=== PATIENT | female | born 1965 | race Caucasian/White ===

== ENCOUNTER 2017-02-17 06:00 | Day surgery (SDC) | payer BC ==
[2017-02-15 16:03] VITALS: BMI 25.4
--- NOTE | 2017-02-16 13:57 | HP ---
HISTORY AND PHYSICAL DATE OF SERVICE: 02/17/2017 Indira Monte is a 51-year-old patient seen progressive left shoulder pain after options regarding treatment were discussed with her, she elected to proceed with arthroscopy. Consent regarding the procedure was obtained. PAST MEDICAL HISTORY: Noncontributory. PAST SURGICAL HISTORY: Cholecystectomy. DAILY MEDICATIONS: Ibuprofen. ALLERGIES: None reported. SOCIAL HISTORY: Patient denies current tobacco use. PHYSICAL EVALUATION: left shoulder, flexion 120 degrees, abduction 110 degrees, external rotation 50 degrees with weakness. There is tenderness along the anterolateral acromion rotator cuff insertion site. Impingement sign positive at 80 degrees. Distal neurovascular exam is intact. Radiographs of the left shoulder revealed a lateral downsloping anterior acromion, acromioclavicular joint osteoarthritis and cystic changes of the greater tuberosity. A left shoulder MRI revealed rotator cuff tear. IMPRESSION: Left shoulder impingement with rotator cuff tear. PLAN: Left shoulder arthroscopy, subacromial decompression, possible arthroscopic rotator cuff repair and debridement. MMODL / IJN: [id number] /
[~2017-02-17 06:00] MED LIST: DEXAMETHASONE SOD PHOSPHATE 10 MG/ML 1 ML VIAL IV ONE; HYDROmorphone 0.5 MG/0.5 ML SYRINGE IVP PRN; LACTATED RINGERS 1,000 ML IV SCH; MIDAZOLAM 2 MG/2 ML VIAL IV PRN; ONDANSETRON 4 MG/2 ML VIAL IVP ONE
[2017-02-17] MEDS ORDERED: LIDOCAINE 1% 20 ML VIAL (10MG/ML) FOR IV START INTRADERMA ONE (06:54)
[2017-02-17] MEDS ORDERED: MIDAZOLAM 2 MG/2 ML VIAL IV ONE (07:18)
[2017-02-17] MEDS ORDERED: fentaNYL (PF) 50 MCG/ML 2 ML AMP IV ONE (07:18)
[2017-02-17] MEDS ORDERED: PHENYLEPHRINE-0.9% NACL SYG 1 MG/10 ML SYRINGE ONE (07:31)
[2017-02-17] MEDS ORDERED: ePHEDrine SULFATE/0.9% NACL/PF 50 MG/5 ML SYRINGE IV ONE (07:31)
[2017-02-17] MEDS ORDERED: fentaNYL (PF) 50 MCG/ML 2 ML AMP ONE (07:31)
[2017-02-17] MEDS ORDERED: SUCCINYLCHOLINE CHLORIDE 100 MG/5 ML SYR IV ONE (07:31)
[2017-02-17] MEDS ORDERED: PROPOFOL 10 MG/ML 20 ML VIAL IV ONE (07:31)
[2017-02-17] MEDS ORDERED: ceFAZolin 1,000 MG in DEXTROSE/WATER 1 50ML.BAG IVPB ONE (08:00)
--- NOTE | 2017-02-17 08:48 | P.ONQ ---
Anesthesiology Proc Note - PNB - Peripheral Nerve Block Performed Left Interscalene Single Time Out Performed: Yes Procedure Start Time: 07:15 Indication: Acute Post-Operative Pain, Analgesia Specifically requested for management of pain by DrDaniel: Seymour Fry Sedation Type: Sedate with meaningful contact maintained Preparation: Sterile Prep Position: Supine Catheter: None Needle Types: Other (see comment) (Pajunk) Needle Size: 50mm (2") Needle Gauge: 21 Technique: Ultrasound Injectate: Other (see comment) (10 mL 2% lidocaine +10 mL 0.5% ropivacaine) Adjunct: Epinephrine (see comment for dilution ratio) (1:200,000) Blood Aspirated: No Pain Paresthesia on Injection Noted: No Resistance on Injection: Normal Events: Uneventful and Well Tolerated
[2017-02-17] MEDS ORDERED: LACTATED RINGERS 1,000 ML IV ONE (08:52)
--- NOTE | 2017-02-17 09:35 | P.OP ---
Date of Procedure: 02/17/17 Preoperative Diagnosis: Left shoulder impingement Postoperative Diagnosis: 1. Left shoulder rotator cuff tear 2. Left shoulder impingement 3. Left shoulder acromioclavicular joint osteoarthritis 4. Left shoulder partial long head biceps tendon tear Procedure(s) Performed: 1. Left shoulder arthroscopic rotator cuff repair 2. Left shoulder arthroscopic subacromial decompression 3. Left shoulder arthroscopic Kelly procedure 4. Left shoulder arthroscopic biceps tenotomy Implants: 4-4.5 peek anchors Anesthesia: GETA, regional (Interscalene block) Surgeon: Seymour Fry Donor Processor #1: Ellis Munoz Estimated Blood Loss (ml): 10 Pathology: none sent Condition: stable Disposition: PACU Indications for Procedure: 51-year-old patient seen with progressive left shoulder pain. After having treatment options discussed, she elected to proceed with arthroscopy. Operative Findings: See description of procedure Description of Procedure: Patient underwent a shoulder block by department of anesthesia. The patient was then taken to the operative suite. The patient underwent a general anesthetic by the department of anesthesia. The patient was placed into a lateral position and secured. There was appropriate padding of the bony prominence. Left shoulder was then prepped and draped in normal sterile orthopedic fashion. We placed the extremity in 10 pounds of longitudinal traction. A posterior incision was now made for a posterior working portal site. The trocar and cannula were inserted into the glenohumeral joint. Arthroscopy was initiated. Spinal needle was now inserted anteriorly, to ascertain the anterior working portal site. An incision was now made in that area, a trocar was inserted followed by a probe. Was partial tearing long head biceps tendon. There was an obvious rotator cuff tear visualized from glenohumeral side. The humeral head and glenoid were unremarkable. The labrum was stable. I performed an arthroscopic biceps tenotomy. Instruments were now removed from the glenohumeral joint. Utilizing the posterior working portal site, the trocar and cannula were inserted into the subacromial space. Arthroscopy initiated. I made an incision 2 fingerbreadths lateral to the acromion. I introduced my trocar followed by my ArthroCare ablator. I now began ablating thick subacromial bursal tissue, which exposed the undersurface of the anterior acromion. This was diminished subacromial space. There was a very prominent anterior acromion. A motorized bur was introduced and a subacromial decompression was performed. I also excised some osteophytes off the inferior aspect of the distal clavicle. The AC joint was visualized and noted to be fairly arthritic. Our motorized bur was introduced in the anterior portal site and a Kelly procedure was performed without difficulty, decompressing the AC joint nicely. I turned my attention to the rotator cuff. There was a 2-2.5 cm tear distal supraspinatus. I debrided the margins down to stable tissue. I abraded the footprint with a motorized bur. I created an poultryman portal site off the lateral acromion. I introduced 2 medial row anchors with 2 sutures each. I passed all 8 limbs of suture through good bites of rotator cuff tendon. I crisscrossed the suture introduced 2 lateral anchors compressing the tendon along the footprint very nicely. Residual suture limbs were clipped. The repair was found to be stable. Instruments now removed from the portal sites. All portal sites were approximated with nylon sutures. Sterile dressings were applied followed by a shoulder immobilizer. Low GLASGOW assisted with the procedure. The patient was awakened, transferred to a bed, and taken to recovery in stable condition.
[2017-02-17 09:38] VITALS: TEMP 97.1
[2017-02-17 11:03] VITALS: RESP 18
[2017-02-17 11:32] VITALS: BP 126/78; PULSE 70
== END 2017-02-17 12:07 | disposition home or self-care (01) ==
LOC: OR 06:00
PROVIDERS: ATTEND Orthopaedic Surgery
DX: M75.102 Unspecified rotator cuff tear or rupture of left shoulder, not specified as traumatic (principal); M19.012 Primary osteoarthritis, left shoulder; S46.112A Strain of muscle, fascia and tendon of long head of biceps, left arm, initial encounter; X58.XXXA Exposure to other specified factors, initial encounter; M75.42 Impingement syndrome of left shoulder; M25.712 Osteophyte, left shoulder; Z79.1 Long term (current) use of non-steroidal anti-inflammatories (NSAID)
CPT/HCPCS: 64415; 81025; 29824; 29827; 29826; C1894; C1713; J2250; J1100; J2405; J3010; J0690; J2370; J0330; J2704

== ENCOUNTER 2019-01-03 18:38 | Emergency (ER) | payer OTHER, BC ==
[2019-01-03 18:51] VITALS: TEMP 98
[2019-01-03] MEDS ORDERED: ACETAMINOPHEN TAB 500 MG TAB PO STA (19:05)
[2019-01-03] MEDS ORDERED: LIDOCAINE 1% INJ 10MG/ML (20 ML MDV) SQ ONE (19:05)
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
[2019-01-03 21:06] VITALS: BP 133/72; PULSE 72; RESP 18
== END 2019-01-03 21:08 | disposition home or self-care (01) ==
LOC: EC 18:38
DX: S61.412A Laceration without foreign body of left hand, initial encounter (principal); S00.83XA Contusion of other part of head, initial encounter; S20.211A Contusion of right front wall of thorax, initial encounter; R04.0 Epistaxis; V49.40XA Driver injured in collision with unspecified motor vehicles in traffic accident, initial encounter; Y92.410 Unspecified street and highway as the place of occurrence of the external cause; Y93.89 Activity, other specified
CPT/HCPCS: 73130; 71046; 70486; 70450; 99284; 12002; J2001

== ENCOUNTER → 2019-01-09 | Outpatient (CLI) | payer BC ==
[2019-01-09 13:34] VITALS: BP 119/78; PULSE 77; RESP 16; TEMP 98.4; BMI 28.7
--- NOTE | 2019-01-09 14:16 | P.HPOB ---
History of Present Illness H&P Date: 01/09/19 Chief Complaint: The patient is here for her routine gynecologic exam and ma mmogram. This is a 53-year-old with an LMP of 2017. Patient states it has been about 5 years since her last pelvic exam. Her menstrual periods stopped in 2017. She has had mild hot flashes, but they are infrequent less than one per day. She is without gynecologic complaints and denies any postmenopausal bleeding. She has noticed some vaginal dryness with sexual intercourse and has used a lubricant for this. Review of Systems The patient has gained 5 pounds over the last year. She denies respiratory, cardiac, or G.I. problems. 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 History of Any Multi-Drug Resistant Organisms: None Reported Past Surgical History: Cholecystectomy, Orthopedic Surgery Additional Past Surgical History / Comment(s): lt shoulder Sx. Past Psychological History: No Psychological Hx Reported Smoking Status: Never smoker Past Alcohol Use History: Occasional (One per week) Past Drug Use History: None Reported Additional History: She has been since 2014 and this is her second marriage. 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 - Past Family History Father Family Medical History: Diabetes Mellitus Medications and Allergies Home Medications Medication Instructions Recorded Confirmed Type Calcium Carbonate [Calcium] 600 mg PO DAILY 02/15/17 01/09/19 History Multivitamins, Thera [Multivitamin 1 tab PO DAILY 02/15/17 01/09/19 History (formulary)] Lecithin, Soy [Lecithin] 400 mg PO DAILY 01/09/19 01/09/19 History Allergies Allergy/AdvReac Type Severity Reaction Status Date / Time No Known Allergies Allergy Verified 01/09/19 13:29 Exam Vital Signs Temp Pulse Resp BP Pulse Ox 01/09/19 13:31 98.4 F 77 16 119/78 100 Intake and Output 01/08/19 01/09/19 01/09/19 22:59 06:59 14:59 Other: Weight 66.678 kg Height 5 feet 0 inches, weight 147 pounds, BMI 28.7. This is a well-developed well-nourished female who is alert and oriented times 3 in no acute distress. HEENT: Within normal limits. NECK: Supple without mass or thyromegaly. CHEST AND LUNGS: Clear to auscultation. HEART: Regular rate and rhythm. BREASTS: Are without mass or discharge. AXILLARY EXAM: Negative for adenopathy. BACK: Negative for CVA tenderness. ABDOMEN: Soft, nontender, without palpable masses. PELVIC EXAM: Normal external genitalia with minimal atrophy. Cervix and vagina appear normal with minimal atrophy. There is no unusual discharge. There is no evidence of prolapse. The uterus is midposition, nongravid size and nontender. There are no palpable adnexal masses or tenderness. RECTAL EXAM: Rectovaginal exam is negative for mass or tenderness and is negative for occult blood. EXTREMITIES: Nontender. IMPRESSION: 1. 53-year-old menopausal female with normal gynecologic exam. PLAN: 1. Pap smear was performed. 2. Self breast awareness was discussed with the patient. 3. Greening mammogram will be done today. 4. Osteoporosis prevention was discussed. I have stressed the importance of adequate calcium, vitamin D and regular exercise. Recommended amounts of calcium and vitamin D were also discussed. 5. She was advised to return in one year for her annual well woman exam.
--- NOTE | 2019-01-10 10:09 | MM ---
Reason for exam: screening (asymptomatic). Last mammogram was performed 5 years and 8 months ago. History: Patient is postmenopausal. Took hormonal contraceptives for 3 years. Physical Findings: A clinical breast exam by your physician is recommended on an annual basis and results should be correlated with mammographic findings. MG 3D Screening Mammo W/Cad Bilateral CC and MLO view(s) were taken. Prior study comparison: May 03, 2013, [facility] DIGITAL RIGHT MAMMOGRAM w/CAD. May 01, 2013, bilateral digital screening mammo w/CAD. There are scattered fibroglandular densities. No suspicious abnormality. No significant changes when compared with prior studies. ASSESSMENT: Negative, BI-RAD 1 RECOMMENDATION: Routine screening mammogram of both breasts in 1 year.
== END | disposition home or self-care (01) ==
LOC: WWCWWP 13:18
PROVIDERS: ATTEND Obstetrics & Gynecology
DX: Z12.31 Encounter for screening mammogram for malignant neoplasm of breast (principal)
CPT/HCPCS: 77063; 77067

== ENCOUNTER → 2021-08-24 | Outpatient (CLI) | payer OTHER ==
--- NOTE | 2021-08-25 05:07 | MR ---
EXAMINATION TYPE: MR shoulder RT wo con DATE OF EXAM: 08/24/2021 COMPARISON: None HISTORY: Right shoulder pain Multiplanar multiecho imaging of the right shoulder with no contrast. There is moderate subcutaneous acromial joint effusion. There is small shoulder joint effusion. There is a large full-thickness tear of the anterior aspect of the rotator cuff supraspinatus tendon. Ther e is minimal retraction. There is spurring at the AC joint and mild subacromial impingement. The infr aspinatus tendon is intact. The biceps tendon is intact. Subscapularis tendon is intact. Glenoid esdras appear fairly normal. No e vidence of a fracture. No focal bone destruction. IMPRESSION: Large anterior rotator cuff tear involving supraspinatus tendon. Shoulder joint effusion and subdelto id effusion. Mild subacromial impingement.
== END | disposition home or self-care (01) ==
LOC: RADMRIMAIN 17:42
PROVIDERS: ATTEND Orthopaedic Surgery
DX: M75.111 Incomplete rotator cuff tear or rupture of right shoulder, not specified as traumatic (principal)

== ENCOUNTER → 2021-10-29 | Outpatient (CLI) | payer OTHER ==
[2021-10-29 15:26] LABS: Basophils # (A) 0.05 X 10*3/uL (0.00-0.10); Basophils % (A) 1.1 %; Eosinophils # (A) 0.15 X 10*3/uL (0.04-0.35); Eosinophils % (A) 3.2 %; HCT 44.4 % (37.2-46.3); HGB 14.4 g/dL (12.0-15.0); Immature Grans, Automated 0.6 %; Lymphocytes % (A) 30.2 %; MCH 29.8 pg (27.0-32.0); MCHC 32.4 g/dL (32.0-37.0); MCV 91.7 fL (80.0-97.0); Mean Platelet Volume 10.9 fL (9.5-12.2); Monocytes # (A) 0.35 X 10*3/uL (0.20-1.00); Monocytes % (A) 7.6 %; NRBC Per 100 WBC 0 /100 WBCS (0.0-0.0); Neutrophils # (A) 2.65 X 10*3/uL (1.80-7.70); Neutrophils % (A) 57.3 %; Platelet Count 288 X 10*3/uL (140-440); RBC 4.84 X 10*6/uL (4.10-5.20); RDW 12.1 % (11.5-14.5); WBC 4.63 X 10*3/uL (4.50-10.00)
[2021-10-29 15:59] LABS: Potassium 4.1 mmol/L (3.5-5.5)
== END | disposition home or self-care (01) ==
LOC: LABPAT 08:38
PROVIDERS: ATTEND Orthopaedic Surgery
DX: Z01.818 Encounter for other preprocedural examination (principal); M75.41 Impingement syndrome of right shoulder; R94.31 Abnormal electrocardiogram [ECG] [EKG]
CPT/HCPCS: 36415; 80051; 85025; 93005

== ENCOUNTER 2021-11-05 07:08 | Day surgery (SDC) | payer OTHER ==
--- NOTE | 2021-11-05 03:41 | HP ---
HISTORY AND PHYSICAL DATE OF SURGERY: Surgery is scheduled for 11/05/2021. HISTORY OF PRESENT ILLNESS: Indira Monte is a 56-year-old patient, seen with progressive right shoulder pain. Options were discussed with her. She elected to proceed with right shoulder arthroscopy. Consent was obtained. PAST MEDICAL HISTORY: Noncontributory. PAST SURGICAL HISTORY: Cholecystectomy, left shoulder arthroscopy. DAILY MEDICATIONS: Motrin. ALLERGIES: None. SOCIAL HISTORY: She denies tobacco use. PHYSICAL EVALUATION OF THE RIGHT SHOULDER: Flexion is 120 degrees, abduction is 110 degrees, external rotation is 40 degrees with some weakness. Tenderness along the anterolateral acromion and rotator cuff insertion. Impingement is positive at 90 degrees. Drop-arm sign is positive. Cross-body adduction sign is positive. Distal neurovascular exam is intact. RADIOGRAPHS: Right shoulder radiographs revealed a type 2 acromion, severe acromioclavicular joint osteoarthritis and cystic changes of the tuberosity. Right shoulder MRI revealed a large rotator cuff tear, evidence for acromioclavicular joint osteoarthritis and impingement. IMPRESSION: 1. Right shoulder impingement with rotator cuff tear. 2. Right shoulder acromioclavicular joint osteoarthritis. PLAN: Right shoulder arthroscopy with subacromial decompression, arthroscopic rotator cuff repair, Kelly procedure and debridement. MMODL / IJN: [id number] /
[~2021-11-05 07:08] MED LIST changes: -DEXAMETHASONE SOD PHOSPHATE 10 MG/ML 1 ML VIAL IV ONE; +DEXAMETHASONE SOD PHOSPHATE 4 MG/ML 1 ML VIAL IV ONE; -HYDROmorphone 0.5 MG/0.5 ML SYRINGE IVP PRN; +LIDOCAINE 1% (10MG/ML) FOR IV START INTRADERMA PRN
[2021-11-05] MEDS ORDERED: MIDAZOLAM 2 MG/2 ML VIAL IVP ONE (08:42)
[2021-11-05] MEDS ORDERED: PROPOFOL 10 MG/ML 20 ML VIAL IV ONE (08:53)
[2021-11-05] MEDS ORDERED: ROPIVACAINE 5 MG/ML 30 ML VIAL ONE (08:53)
[2021-11-05] MEDS ORDERED: SUCCINYLCHOLINE CHLORIDE 200 MG/10 ML VIAL IV ONE (08:53)
[2021-11-05] MEDS ORDERED: LIDOCAINE 2% INJ 20 MG/ML (2 ML VIAL) ONE (08:53)
[2021-11-05] MEDS ORDERED: fentaNYL (PF) 50 MCG/ML 2 ML AMP ONE (08:53)
[2021-11-05] MEDS ORDERED: DEXAMETHASONE SOD PHOSPHATE 4 MG/ML 1 ML VIAL ONE (08:53)
[2021-11-05 10:50] VITALS: TEMP 97
[2021-11-05] MEDS: HYDROmorphone 0.5 MG/0.5 ML SYRINGE IVP PRN ×2 (10:59→11:23)
[2021-11-05] MEDS ORDERED: Acetaminophen-Codeine 300-30mg TAB ONE (12:12)
[2021-11-05] MEDS ORDERED: LACTATED RINGERS 1,000 ML IV ONE (12:18)
[2021-11-05] MEDS ORDERED: Acetaminophen-Codeine 300-30mg TAB PO ONE (12:20)
[2021-11-05 12:24] VITALS: PULSE 75
[2021-11-05] MEDS ORDERED: ONDANSETRON 4 MG/2 ML VIAL ONE (12:34)
[2021-11-05] MEDS ORDERED: ONDANSETRON 4 MG/2 ML VIAL IVP ONE (12:35)
[2021-11-05 12:45] VITALS: BP 144/88; RESP 20
--- NOTE | 2021-11-05 19:30 | P.ANPRN ---
Procedure Note - Anesthesia - Nerve Block Performed Right Interscalene Single Time Out Performed: Yes Date of Procedure: 11/05/21 Procedure Start Time: 08:41 Procedure Stop Time: 08:46 Location of Patient: PreOp Indication: Acute Post-Operative Pain, Requested by Surgeon Sedation Type: Sedate with meaningful contact maintained Preparation: Sterile Prep Position: Supine Needle Types: Pajunk Needle Gauge: 21 Ultrasound used to visualize needle placement: Yes Ultrasound used to observe medication spread: Yes Blood Aspirated: No Pain Paresthesia on Injection Noted: No Resistance on Injection: Normal Image Stored and Saved: Yes Events: Uneventful and Well Tolerated (ropi .5% 20cc plus dexamethasone 4mg)
--- NOTE | 2021-11-05 20:06 | OP ---
OPERATIVE REPORT PREOPERATIVE DIAGNOSIS: Right shoulder impingement. POSTOPERATIVE DIAGNOSES: 1. Right shoulder rotator cuff tear. 2. Right shoulder impingement. 3. Right shoulder acromioclavicular joint osteoarthritis. 4. Right shoulder partial long head biceps tendon tear. 5. Right shoulder superficial labral tear. PROCEDURES: 1. Right shoulder arthroscopic rotator cuff repair. 2. Right shoulder arthroscopic subacromial decompression. 3. Right shoulder arthroscopic Kelly procedure. 4. Right shoulder arthroscopic biceps tenotomy. 5. Right shoulder arthroscopic debridement of labral tear. ANESTHESIA: General with preoperative interscalene block. ESTIMATED BLOOD LOSS: 10 mL. PATHOLOGY: None. CONDITION: Stable. INDICATIONS: 56-year-old patient seen with progressive right shoulder pain. Options for treatment were discussed with her. She elected to proceed with arthroscopy. Consent was obtained. DESCRIPTION OF PROCEDURE: The patient was taken to the operative suite after having an interscalene block performed by the by Department of Anesthesia for postoperative pain management. She underwent general anesthetic by Department Of Anesthesia. She was placed in lateral position. The bony prominence was secured and they were well padded. The right upper extremity was placed in 10 pounds longitudinal traction. The right shoulder was prepped and draped in normal sterile orthopedic fashion. A posterior incision was made for posterior working portal site. The trocar and camera were inserted into the glenohumeral joint. Arthroscopy was initiated. I inserted a spinal needle anteriorly to assign the anterior working portal site. Incision was made. Trocar and probe inserted. There was superficial tearing of the labrum superiorly and anteriorly. There was partial tearing and hyperemia of long-head biceps tendon. There were some early grade 1 chondral changes of the glenohumeral joint. There was a significant rotator cuff tendon tear that I could see from the glenohumeral joint. I performed arthroscopic biceps tenotomy. I debrided out the superficial labral tear getting down to stable labral tissue. The residual labrum was probed and was found to be stable. Instruments are now removed from glenohumeral joint. Utilizing a posterior working portal site, a trocar and cannula were now inserted into the subacromial space. Arthroscopy was initiated. I made a lateral incision for a lateral working portal site and introduced my trocar, followed by my ablator, and ablated the thick subacromial bursal tissue, exposing the undersurface of the anterior acromion, which was very prominent with diminished subacromial space. I introduced a bur and performed a subacromial decompression. I also excised some osteophytes off the inferior aspect of the distal clavicle. I noted a significant amount of osteoarthritis of the acromioclavicular joint. I now inserted my motorized bur through the anterior portal and performed an arthroscopic Kelly procedure. We noted good decompression of the AC joint at this point. I now turned my attention to the rotator cuff. There was an approximately 2.5 to 3 cm tear in the distal supraspinatus tendon. I debrided the margins getting down to a stable tendon tissue. I abraded the footprint with a motorized bur. I made an accessory portal site off the anterolateral acromion. I now punched 2 holes for medial row anchors, introduced 2 medial row anchors with 2 stitches each. I now with the assistance of PEE Garces, passed all the limbs of suture through good bites of rotator cuff tendon. We punched 2 holes lateral for insertion of our lateral anchors. The sutures were crisscross, 4 sutures were passed through the eyelet of a 4.75 Arthrex SwiveLock anchor. I placed an eyelet to high into the anterior lateral punch hole. I held it in position while PEE Garces, tension all those sutures into nazia. The anchor with good fixation noted. We did the same with the posterolateral anchor with good fixation noted there. All residual suture limbs were clipped. We had a good speed bridge type configuration repair with good compression tendon in the entire footprint. At this point, instruments removed from subacromial space. The portal sites were approximated with nylon suture. Sterile dressings were applied. The patient was placed into an immobilizer, awakened, transferred to bed in recovery stable condition. PEE Garces, assisted with all aspects of the procedure. MMODL / IJN: [id number] /
== END 2021-11-05 13:14 | disposition home or self-care (01) ==
LOC: OR 07:08
PROVIDERS: ATTEND Orthopaedic Surgery
DX: S46.011A Strain of muscle(s) and tendon(s) of the rotator cuff of right shoulder, initial encounter (principal); G89.18 Other acute postprocedural pain; M19.011 Primary osteoarthritis, right shoulder; S43.431A Superior glenoid labrum lesion of right shoulder, initial encounter; S46.111A Strain of muscle, fascia and tendon of long head of biceps, right arm, initial encounter; M75.41 Impingement syndrome of right shoulder; Z79.1 Long term (current) use of non-steroidal anti-inflammatories (NSAID); X58.XXXA Exposure to other specified factors, initial encounter
CPT/HCPCS: 29827; 29826; 29824; 29828; 64415; 76942; C1713 ×2; C1894; J2250; J0330; J1100; J2405; J0690; J3010; J2795; J2704; J1170; J2001

== ENCOUNTER → 2022-08-06 | Outpatient (CLI) | payer OTHER ==
--- NOTE | 2022-08-09 18:56 | MM ---
Reason for Exam: Screening (asymptomatic). Last mammogram was performed 3 year(s) and 7 month(s) ago. Patient History: Menarche at age 11. First Full-Term at age 25. Postmenopausal. Patient has history of breast feeding. Patient used Hormonal Contraceptives for 3 years. Risk Values: Brigitte 5 year model risk: 1.0%. NCI Lifetime model risk: 6.8%. Prior Study Comparison: 05/01/2013 Bilateral Screening Mammogram, [facility]. 05/03/2013 Right Diagnostic Mammogram, [facility]. 01/09/2019 Bilateral Screening Mammogram, [facility]. Tissue Density: There are scattered fibroglandular densities. Findings: Analyzed By CAD. Pattern appears symmetrical and stable. No significant interval change is evident. Some chronic nodularities within the left breast, Stable. No suspicious groups of microcalcifications, spiculated or lobular masses, architectural distortion or other secondary signs of malignancy are mammographically apparent. Overall Assessment: Benign, BI-RAD 2 Management: Screening Mammogram of both breasts in 1 year. A negative mammogram report should not preclude additional follow up of suspicious palpable abnormalities. Patient should continue monthly self breast exam. A clinical breast exam by your physician is recommended on an annual basis and results should be correlated with mammographic findings. Electronically signed and approved by: Jamie Abarca D.O. Radiologis
== END | disposition home or self-care (01) ==
LOC: RADMAMWWP 11:14
PROVIDERS: ATTEND Family Medicine
DX: Z12.31 Encounter for screening mammogram for malignant neoplasm of breast (principal); Z78.0 Asymptomatic menopausal state
CPT/HCPCS: 77067

== ENCOUNTER → 2022-08-10 | Outpatient (CLI) | payer OTHER ==
[2022-08-10 09:57] VITALS: BP 133/91; PULSE 65; RESP 16; TEMP 97.5
--- NOTE | 2022-08-10 10:45 | P.HPOB ---
History of Present Illness H&P Date: 08/10/22 Chief Complaint: The patient is here for her routine gynecologic exam. This is a 56-year-old with an LMP of 2017. The patient has experienced some vaginal dryness with sexual intercourse. She is otherwise without gynecologic complaints. Review of Systems She has lost about 7 pounds since she was here 4 years ago. She denies respiratory, cardiac, or GI problems. 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 History of Any Multi-Drug Resistant Organisms: None Reported Past Surgical History: Cholecystectomy, Orthopedic Surgery Additional Past Surgical History / Comment(s): Bilateral rotator cuff surgeries. Colonoscopy 2017(next after 10yr). Past Psychological History: No Psychological Hx Reported Smoking Status: Never smoker Past Alcohol Use History: Occasional (One per week.) Past Drug Use History: None Reported Additional History: She has been since 2014 and this is her second marriage. 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 - Past Family History Father Family Medical History: Diabetes Mellitus Brother(s) Family Medical History: Diabetes Mellitus Medications and Allergies Home Medications Medication Instructions Recorded Confirmed Type Calcium Carbonate [Calcium] 600 mg PO DAILY 02/15/17 08/10/22 History Multivitamins, Thera [Multivitamin 1 tab PO DAILY 02/15/17 08/10/22 History (formulary)] Lecithin, Soy [Lecithin] 400 mg PO DAILY 01/09/19 08/10/22 History Acetaminophen-Codeine 300-30mg 1 tab PO Q4H PRN #28 tablet 11/05/21 08/10/22 Rx [Tylenol w/codeine #3] Cholecalciferol (Vitamin D3) 1 tab PO DAILY 08/10/22 08/10/22 History [Vitamin D3] Allergies Allergy/AdvReac Type Severity Reaction Status Date / Time No Known Allergies Allergy Verified 08/10/22 09:53 Exam Vital Signs Temp Pulse Resp BP Pulse Ox 08/10/22 09:55 97.5 F L 65 16 133/91 99 Intake and Output 08/09/22 08/10/22 08/10/22 22:59 06:59 14:59 Other: Weight 63.503 kg Height 5 feet 0 inches, weight 140 pounds, BMI 27.3. This is a well-developed well-nourished female who is alert and oriented times 3 in no acute distress. HEENT: Within normal limits. NECK: Supple without mass or thyromegaly. CHEST AND LUNGS: Clear to auscultation. HEART: Regular rate and rhythm. BREASTS: Are without mass or discharge. AXILLARY EXAM: Negative for adenopathy. BACK: Negative for CVA tenderness. ABDOMEN: Soft, nontender, without palpable masses. PELVIC EXAM: Normal external genitalia with mild atrophy. Cervix and vagina appear normal with mild atrophy. There is no unusual discharge. There is no evidence of prolapse. The uterus is midposition, nongravid size and nontender. There are no palpable adnexal masses or tenderness. RECTAL EXAM: . Rectovaginal exam is negative for mass or tenderness and is negative for occult blood. EXTREMITIES: Nontender. IMPRESSION: 1. 56-year-old menopausal female with normal gynecologic exam. 2. Mildly elevated blood pressure. 3. Vaginal dryness with intercourse secondary to atrophy. PLAN: 1. Pap smear cotest was performed. 2. Self breast awareness was discussed with the patient. We have also discussed symptoms associated with inflammatory breast cancer. 3. Screening mammogram was done on 08/06/2022 and was benign. She will repeat this in 1 year. 4. Osteoporosis prevention was discussed. I have stressed the importance of adequate calcium, vitamin D and regular exercise. Recommended amounts of calcium and vitamin D were also discussed. 5. We've discussed options for her vaginal dryness with sexual intercourse. She will continue to use [id number] lubrication. We have discussed the option of vaginal estrogen which she is declining at this time. She will call if she changes her mind. 6. She will check her own blood pressure at home on a regular basis since she does have a blood pressure cuff. She will follow-up with her PCP for blood pressure elevations. 7. She was advised to return in one year for her annual well woman exam.
== END ==
LOC: WWCWWP 09:47
PROVIDERS: ATTEND Obstetrics & Gynecology
DX: N95.1 Menopausal and female climacteric states (principal); N95.2 Postmenopausal atrophic vaginitis; R03.0 Elevated blood-pressure reading, without diagnosis of hypertension; E78.5 Hyperlipidemia, unspecified; Z90.49 Acquired absence of other specified parts of digestive tract

== ENCOUNTER → 2023-08-09 | Outpatient (CLI) | payer OTHER ==
--- NOTE | 2023-08-11 09:19 | MM ---
Reason for Exam: Screening (asymptomatic). Last screening mammogram was performed 12 month(s) ago. Patient History: Menarche at age 11. First Full-Term at age 25. Postmenopausal. Patient has history of breast feeding. Patient used Hormonal Contraceptives for 3 years. Risk Values: Brigitte 5 year model risk: 1.0%. NCI Lifetime model risk: 6.7%. Prior Study Comparison: 05/03/2013 Right Diagnostic Mammogram, [facility]. 01/09/2019 Bilateral Screening Mammogram, [facility]. 08/06/2022 Bilateral MG screening mammo w CAD, [facility]. Tissue Density: There are scattered areas of fibroglandular density. Findings: Analyzed By CAD. There is no suspicious group of microcalcifications or new suspicious mass in either breast. Overall Assessment: Negative, BI-RAD 1 Management: Screening Mammogram of both breasts in 1 year. . Patient should continue monthly self-breast exams. A clinical breast exam by your physician is recommended on an annual basis. This exam should not preclude additional follow-up of suspicious palpable abnormalities. Note on Brigitte scores and lifetime risk: 1. A Brigitte score greater than 3% is considered moderate risk. If this is the case, consider specialist referral to assess eligibility for a risk reducing agent. 2. If overall lifetime risk for the development of breast cancer is 20% or higher, the patient may qualify for future screening with alternating mammogram and breast MRI. Electronically signed and approved by: Js Cooper M.D. Radiologis
== END | disposition home or self-care (01) ==
LOC: RADMAMWWP 15:56
PROVIDERS: ATTEND Family Medicine
DX: Z12.31 Encounter for screening mammogram for malignant neoplasm of breast (principal); Z78.0 Asymptomatic menopausal state
CPT/HCPCS: 77063; 77067

== ENCOUNTER → 2024-09-05 | Outpatient (CLI) | payer OTHER ==
--- NOTE | 2024-09-05 10:18 | MM ---
Reason for Exam: Screening (asymptomatic). Last mammogram was performed 1 year(s) and 1 month(s) ago. Patient History: Menarche at age 11. First Full-Term at age 25. Postmenopausal. Patient has history of breast feeding. Patient used Hormonal Contraceptives for 3 years. Risk Values: Brigitte 5 year model risk: 1.1%. NCI Lifetime model risk: 6.3%. Prior Study Comparison: 01/09/2019 Bilateral Screening Mammogram, [facility]. 08/06/2022 Bilateral MG screening mammo w CAD, [facility]. 08/09/2023 Bilateral MG 3D screening mammo w/cad, [facility]. Tissue Density: There are scattered areas of fibroglandular density. Findings: Analyzed By CAD. There is no suspicious group of microcalcifications or new suspicious mass in either breast. Overall Assessment: Negative, BI-RAD 1 Management: Screening Mammogram of both breasts in 1 year. . Patient should continue monthly self-breast exams. A clinical breast exam by your physician is recommended on an annual basis. This exam should not preclude additional follow-up of suspicious palpable abnormalities. Note on Brigitte scores and lifetime risk: 1. A Brigitte score greater than 3% is considered moderate risk. If this is the case, consider specialist referral to assess eligibility for a risk reducing agent. 2. If overall lifetime risk for the development of breast cancer is 20% or higher, the patient may qualify for future screening with alternating mammogram and breast MRI. [facility], , 09/05/2024 10:15 AM. Electronically signed and approved by: Dennis Marroquin M.D.
== END | disposition home or self-care (01) ==
LOC: RADMAMWWP 09:43
PROVIDERS: ATTEND Family Medicine
DX: Z12.31 Encounter for screening mammogram for malignant neoplasm of breast (principal); R92.323 Mammographic fibroglandular density, bilateral breasts; Z78.0 Asymptomatic menopausal state; Z92.0 Personal history of contraception
CPT/HCPCS: 77063; 77067

== ENCOUNTER → 2024-09-11 | Outpatient (CLI) | payer OTHER ==
[2024-09-11 08:59] VITALS: BP 134/86; PULSE 58; RESP 16; TEMP 98.1
--- NOTE | 2024-09-11 09:23 | P.HPOB ---
History of Present Illness H&P Date: 09/11/24 Chief Complaint: The patient is here for her routine gynecologic exam. This is a 59-year-old G3, P3 with an LMP of 2017. The patient is without gynecologic complaints and denies any postmenopausal bleeding. Review of Systems The patient has gained 6 pounds over the last year. She denies respiratory, cardiac, or G.I. problems. 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 History of Any Multi-Drug Resistant Organisms: None Reported Past Surgical History: Cholecystectomy, Orthopedic Surgery Additional Past Surgical History / Comment(s): Bilateral rotator cuff surgeries. Colonoscopy 2017(next after 10yr). Past Psychological History: No Psychological Hx Reported Smoking Status: Never smoker Past Alcohol Use History: Occasional (3 drinks per month.) Past Drug Use History: None Reported Additional History: She has been since 2014 and this is her second marriage. 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 - Past Family History Father Family Medical History: Diabetes Mellitus Brother(s) Family Medical History: Diabetes Mellitus Medications and Allergies Home Medications Medication Instructions Recorded Confirmed Type Calcium Carbonate [Calcium] 600 mg PO DAILY 02/15/17 09/11/24 History Multivitamins, Thera [Multivitamin 1 tab PO DAILY 02/15/17 09/11/24 History (formulary)] Lecithin, Soy [Lecithin] 400 mg PO DAILY 01/09/19 09/11/24 History Acetaminophen-Codeine 300-30mg 1 tab PO Q4H PRN #28 tablet 11/05/21 09/11/24 Rx [Tylenol w/codeine #3] Cholecalciferol (Vitamin D3) 1 tab PO DAILY 08/10/22 09/11/24 History [Vitamin D3] Allergies Allergy/AdvReac Type Severity Reaction Status Date / Time No Known Allergies Allergy Verified 09/11/24 08:54 Exam Vital Signs Temp Pulse Resp BP Pulse Ox 09/11/24 08:55 98.1 F 58 L 16 134/86 100 Intake and Output 09/10/24 09/11/24 09/11/24 22:59 06:59 14:59 Other: Weight 66.224 kg Height 5 foot 1 inch, weight 146 pounds, BMI 27.6. This is a well-developed well-nourished female who is alert and oriented times 3 in no acute distress. HEENT: Within normal limits. NECK: Supple without mass or thyromegaly. CHEST AND LUNGS: Clear to auscultation. HEART: Regular rate and rhythm. BREASTS: Are without mass or discharge. AXILLARY EXAM: Negative for adenopathy. BACK: Negative for CVA tenderness. ABDOMEN: Soft, nontender, without palpable masses. PELVIC EXAM: Normal external genitalia with minimal atrophy. Cervix and vagina appear normal with mild atrophy. There is no unusual discharge. There is no evidence of prolapse. The uterus is midposition, nongravid size and nontender. There are no palpable adnexal masses or tenderness. RECTAL EXAM: Rectovaginal exam is negative for mass or tenderness and is negative for occult blood. EXTREMITIES: Nontender. IMPRESSION: 1. 59-year-old menopausal female with normal gynecologic exam. PLAN: 1. Pap smear was deferred since she had a negative Pap smear cotest on 08/10/2022. 2. Self breast awareness was discussed with the patient. 3. Screening mammogram was done on 09/05/2024 and was benign. 4. Osteoporosis prevention was discussed. We will plan on doing a baseline bone density test in 1 year. 5. She was advised to return in one year for her annual well woman exam.
== END ==
LOC: WWCWWP 08:35
PROVIDERS: ATTEND Obstetrics & Gynecology
DX: Z01.419 Encounter for gynecological examination (general) (routine) without abnormal findings (principal); Z78.0 Asymptomatic menopausal state